=== PATIENT | male | born 1995 | race Caucasian/White ===

== ENCOUNTER 2025-03-29 16:28 | Outpatient (AMB) | payer OTHER, SELFPAY ==
--- NOTE | 2025-03-29 16:28 | MHC.PC.OV ---
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 Intake Note: New patient presents with graves disease Mold Stamper Required: No Accompanied by: Self / Same As Patient Allergies No Known Allergies Allergy (Verified 03/29/25 16:32) Medication List - Last Reconciled 03/29/25 by Myles Stevens MD methimazole 20 mg PO DAILY metoprolol succinate ER 50 mg PO DAILY Tobacco use date assessed: 03/29/25 Dental Screening Dental Screen Date: 03/29/25 Did you have a dental visit in the last 12 months?: Yes Did you have a dental problem in the last 6 months where you did not have access to dental care?: No Was dental information given to patient?: Patient has dentist HPI HPI Comments History of Present Illness Details History of Present Illness The patient is a 30 year old male presenting to [facility] primary care for management of Graves' disease and for medication refills. Graves' disease: The patient was diagnosed with Graves' disease last year and was previously managed in [place]. Recently, due to a lapse in care after moving, he tried stretching his medication dose, then went without medication for a week and a half, leading to complications. He experienced obvious weight loss and developed poorly healing skin infections from cuts sustained at work, which prompted an urgent care visit about a month ago, and he was subsequently sent to the emergency room. The ER performed blood work and prescribed his medications. His medications include methimazole, which was previously 10 mg daily and was increased to 20 mg daily after his ER visit, and metoprolol 50 mg extended release. He also reports experiencing recurrent yeast infections, including a severe one, which he associates with his hyperthyroid state. He has no history of a thyroid ultrasound. Surgical History: - Right arm surgery in 2013 for a football injury. Medications: - Methimazole 20 mg once daily for Graves' disease. - Metoprolol extended release 50 mg once daily for Graves' disease. Social History: - Occupation: [employer]. - Substance Use: Denies smoking and illicit drug use. - Alcohol Use: Drinks occasionally. - Marital Status: . - Sexual History: Sexually active with his . Past Medical History - Graves' disease, diagnosed in the last year. - Emergency room visit a few weeks ago for complications of uncontrolled Graves' disease. - Recurrent yeast infections. Health Maintenance - Establishing care with a new primary care physician. - Comprehensive blood work was ordered, including CBC, CMP, A1c, lipid panel, vitamin D, B12, folate, T4, urinalysis, hepatitis B, hepatitis C, and HIV. - A thyroid ultrasound was ordered for further evaluation. - Discussed long-term management options for Graves' disease, including thyroidectomy versus continued medical management. [facility] Medical History (Updated 03/29/25 @ 16:55 by Myles Stevens MD) Graves disease Hyperthyroidism Surgical History (Updated 03/29/25 @ 16:35 by Jus Arreaga CMA) History of surgery on arm Family History (Updated 03/29/25 @ 16:36 by Jus Arreaga CMA) Father Substance abuse Family/Other Substance abuse Social History (Updated 03/29/25 @ 16:37 by Jus Arreaga CMA) Housing: House Alcohol intake: current Comment: ocaisonally Patient Tobacco Use Status: Never used Tobacco e-Cigarette/Vaping Use: Never Used Second Hand Smoke Exposure: No Substance Use Type: Marijuana service: No Current occupational status: unemployed Cognitive needs: No Hearing needs: No Vision needs: No Questionnaire PHQ-9 Over the last 2 weeks, how often have you been bothered by any of the following problems? 1. Little interest or pleasure in doing things: not at all 2. Feeling down, depressed, or hopeless: not at all 3. Trouble falling or staying asleep, or sleeping too much: not at all 4. Feeling tired or having little energy: not at all 5. Poor appetite or overeating: several days 6. Feeling bad about yourself - or that you are a failure or have let yourself or your family down: not at all 7. Trouble concentrating on things, such as reading the newspaper or watching television: not at all 8. Moving or speaking so slowly that other people could have noticed. Or the opposite - being so fidgety or restless that you have been moving around a lot more than usual: not at all 9. Thoughts that you would be better off or of hurting yourself in some way: not at all Total score: 1 Depression Screening Interpretation: Negative Depression Screening Done: Yes 53952 - PHQ-9 Billing: Yes Source: Developed by Drs. Lexa Fang, Adrienne Luna, Paco Stover and colleagues, with an educational malik from [employer]. Thrive Questionnaire Date Thrive assessed: 03/29/25 I am a: Patient What is your living situation today?: I have a steady place to live Within the past 12 months, did the food you bought not last and you didn't have the money to get more?: Never true Within the past 12 months, did you worry whether your food would run out before you got money to buy more?: Never true Do you have trouble paying for medicines?: No Do you have trouble getting transportation to medical appointments?: No Do you have trouble paying your heating and electricity bill?: No Do you have trouble taking care of your child, family member or friend?: No Do you have trouble with day-to-day activities such as bathing, preparing meals, shopping, managing finances, etc.?: No Are you currently unemployed and looking for a job?: No Are you interested in more education?: Yes Please select the resources that you would like help with: None Currently or been in a relationship where the following occur: No concerns reported THRIVE Score: 0 AUDIT C Alcohol Use Questionnaire (AUDIT-C) 1. How often do you have a drink containing alcohol?: 2-4 times a month 2. How many drinks containing alcohol do you have on a typical day when you are drinking?: 3 or 4 3. How often do you have six or more drinks on one occasion?: Less than monthly Total Score: 4 GLADYS-7 AMB Questionnaire GLADYS-7 Date GLADYS - 7 assessed: 03/29/25 Feeling nervous, anxious, or on edge: 1 = Several days Not being able to stop or control worryin = Not at all Worrying too much about different things: 0 = Not at all Trouble relaxin = Several days Being so restless that it is hard to sit still: 0 = Not at all Becoming easily annoyed or irritable: 0 = Not at all Feeling afraid as if something awful might happen: 0 = Not at all Total GLADYS-7 score (0-4 normal; 5-9 mild; 10-14 moderate; 15-21 severe): 2 Source: Developed by Drs. Lexa Fang, Adrienne Luna, Paco Stover and colleagues, with an educational malik from [employer]. GLADYS-7 Assessment Billing GLADYS-7 Assessment Tool: GLAYDS-7 Assessment 84853 Review of Systems Narrative Review of Systems - Constitutional: Reports weight loss when medications were stopped and weight gain while on medication. - Integumentary: Reports poorly healing skin infections and cuts when hyperthyroidism is uncontrolled. - Genitourinary: Reports recurrent yeast infections, one of which was severe. - GI/: Reports normal urination and bowel movements. - Neurologic/Psychiatric: Reports sleeping well. 10-point ROS reviewed and negative except as noted in HPI Physical exam (Primary Care) Vital Signs: Last Vital Signs Temp 97.5 F 03/29/25 16:37 Pulse 67 03/29/25 16:37 Resp 18 03/29/25 16:37 BP 137/63 03/29/25 16:37 Pulse Ox 98 03/29/25 16:37 Oxygen Delivery Method Room Air 03/29/25 16:37 BMI result Body Mass Index 29.3 Tobacco/Smoking Status: Tobacco use Status Tobacco use date assessed 03/29/25 03/29/25 16:35 Patient Tobacco Use Status Never used Tobacco 03/29/25 16:37 e-Cigarette/Vaping Use Never Used 03/29/25 16:37 PHQ-9: PHQ-9 Score PHQ-9: Total score 1 03/29/25 16:41 Depression Screening Interpretation: Negative Thrive Assessment: Date of Thrive Assessment Date Thrive assessed 03/29/25 03/29/25 16:35 Currently or been in a relationship where the following occur: No concerns reported Narrative Physical Exam General: Well-appearing, in no acute distress. Vital signs: Within normal limits. HEENT: Normocephalic, atraumatic. PERRLA, EOMI. Conjunctiva clear, sclera anicteric. Oropharynx clear, mucous membranes moist. TMs intact bilaterally. Neck: Supple, no lymphadenopathy, no thyromegaly, no JVD or carotid bruits. Cardiovascular: RRR, normal S1/S2, no murmurs, rubs, or gallops. Peripheral pulses 2+ and symmetric. No edema. Respiratory: Lungs clear to auscultation bilaterally, no wheezes, rales, or rhonchi. Normal effort. Abdomen: Soft, non-tender, non-distended. Normoactive bowel sounds. No hepatosplenomegaly, no masses. MSK: Full range of motion, no joint swelling or deformity. Normal gait. Skin: Warm, dry, intact. No rashes, lesions, or pallor. Neuro: Alert and oriented x3. Cranial nerves II-XII intact. Strength 5/5 throughout. Sensation intact. Reflexes 2+ symmetric. Normal coordination and gait. Psych: Appropriate mood and affect. Normal judgment and insight. Coding Level of Care Code New Pt Level 4 (63943) Diagnoses Hyperthyroidism E05.90 Additional Codes GLADYS-7 Assessment Billing - GLADYS-7 Assessment Tool: GLADYS-7 Assessment 89604 ([id number]) PHQ-9 - 77072 - PHQ-9 Billing: Yes ([id number]) Assessment & Plan Assessment & Plan (1) Hyperthyroidism: Code(s): E05.90 - Thyrotoxicosis, unspecified without thyrotoxic crisis or storm Category: Medical Plan Consent The patient was given the option to take a paper copy of the thyroid ultrasound order to a walk-in imaging center or wait for the referral center to call and schedule an appointment. The patient agreed to a plan where he would receive the paper copy and the referral would also be sent to the facility. Verbal consent was obtained for this plan. Patient was informed and verbally consented to the use of an ambient scribe for clinic note documentation during this visit. Plan 1. Graves' Disease - Refill methimazole 20 mg once daily with a 1-month supply. - Refill metoprolol extended release 50 mg once daily with a 3-month supply. - Order comprehensive labs including CBC, CMP, HbA1c, lipid panel, vitamin D, vitamin B12, folate, T4, urinalysis, hepatitis B, hepatitis C, and HIV. - Order a thyroid ultrasound, as one has not been performed previously. - Discussed long-term management options including medical therapy versus thyroidectomy, noting that both pathways would require lifelong medication. - Will manage the patient's condition as a family medicine provider and will consider an endocrinology referral if needed after reviewing diagnostic results. - Patient to follow up in 2 weeks to discuss results and adjust the treatment plan. Discussion Notes I informed the patient that I am capable of managing his Graves' disease and that an endocrinology referral may not be immediately necessary. I have refilled his current medications, methimazole 20 mg and metoprolol 50 mg ER, to ensure continuity of care. I ordered a comprehensive panel of labs and a thyroid ultrasound, as one has not been done before. I provided him with a paper script for the ultrasound for his convenience and will also have our referral center contact him. We discussed long-term management strategies, comparing medical management with thyroidectomy, and I explained that surgery would lead to hypothyroidism requiring lifelong hormone replacement. I advised him to complete his labs before his follow-up appointment in two weeks, at which time we will review all results and adjust the plan accordingly. Patient Instructions - Your prescriptions for methimazole 20 mg (1-month supply) and metoprolol 50 mg ER (3-month supply) have been sent to your pharmacy. - Please have your blood drawn at a lab before your next appointment. - I have ordered a thyroid ultrasound. - You have been given a paper order for the ultrasound which you can take to an imaging center, or you can wait for our referral center to call you to schedule it. - Please schedule a follow-up appointment in two weeks to review your test results. Medical Decision Making The patient is a 30-year-old male with a history of Graves' disease, diagnosed within the last year, presenting to [facility] care after relocating. He has recently experienced a flare of his condition due to a lapse in medication, resulting in an ER visit for complications including weight loss and poor wound healing. The primary goal is to stabilize his thyroid function and establish a long-term management plan. My plan is to resume his medical therapy with methimazole 20 mg and metoprolol 50 mg ER immediately. To obtain a comprehensive baseline, I have ordered extensive labs, including a thyroid panel (T4), CBC to monitor for methimazole side effects, a CMP, and general health screens like an A1c and lipid panel. A thyroid ultrasound is warranted as he has never had one, which is essential for a complete evaluation of Graves' disease and to rule out nodules. I will manage his care initially and will refer to endocrinology only if the case proves to be complex after the initial workup. A follow-up in two weeks will allow for timely review of results and medication adjustments. Total Time Statement 30 min Total time spent caring for the patient today includes pre-visit chart review, documentation, review of laboratory and diagnostic imaging results, medication reconciliation, medically necessary evaluation, counseling on diagnoses, care coordination, ordering appropriate tests and medications, review of tests performed by other providers, reporting test results to the patient, and communication with other healthcare providers. Orders: Orders Complete Blood Count Auto Diff 03/29/25 Z13.9 - Encounter for screening, unspecified Hepatitis B Surface Antigen 03/29/25 Z13.9 - Encounter for screening, unspecified Syphilis Screen 03/29/25 Z13.9 - Encounter for screening, unspecified Hepatitis C Antibody 03/29/25 Z13.9 - Encounter for screening, unspecified TSH reflex Free T4 03/29/25 Z13.9 - Encounter for screening, unspecified Hemoglobin A1c 03/29/25 Z13.9 - Encounter for screening, unspecified Magnesium 03/29/25 Z13.9 - Encounter for screening, unspecified Comprehensive Met. Panel 03/29/25 Z13.9 - Encounter for screening, unspecified HIV Ab/Ag 03/29/25 Z13.9 - Encounter for screening, unspecified UA CC w/rflx Micro + Cult 03/29/25 Z13.9 - Encounter for screening, unspecified Lipid Panel 03/29/25 Z13.9 - Encounter for screening, unspecified Vitamin B12 and Folate 03/29/25 Z13.9 - Encounter for screening, unspecified Vitamin D 1,25 dihydroxy 03/29/25 Z13.9 - Encounter for screening, unspecified Hepatitis B Surface Antibody 03/29/25 Z13.9 - Encounter for screening, unspecified US thyroid 03/29/25 E05.90 - Thyrotoxicosis, unspecified without thyrotoxic crisis or storm Medications: New metoprolol succinate ER 50 mg PO DAILY 90 tabs 0RF methimazole 20 mg (2 x 10 mg) PO DAILY 60 tabs 0RF
[2025-03-29 16:37] VITALS: BP 137/63; PULSE 67; RESP 18; TEMP 36.4; O2SAT 98; BMI 29.3
--- OUTSIDE RECORDS SUMMARY | 2025-03-29 22:11 | XMS_ITS ---
Author Name [facility] Organization Unknown Results Test Name/Text Value Interpretation Date Range Source Mucous Threads UrnS Ql Micro Trace 03/03/2025 - [facility] RBC #/area UrnS HPF 4.0 /HPF Above high normal 03/03/2025 0 - 3 [facility] WBC #/area UrnS HPF 2.0 /HPF 03/03/2025 0 - 5 [facility] Prot Ur Strip-mCnc Negative 03/03/2025 - [facility] Nitrite Ur Ql Negative 03/03/2025 - [facility] Hgb Ur Ql Negative 03/03/2025 - [facility] Sp Gr Ur 1.02 03/03/2025 1.005 - 1.03 [facility] Glucose Ur Ql Negative 03/03/2025 - [facility] pH Ur 6.5 pH 03/03/2025 5 - 8 [facility] Clarity Ur Clear 03/03/2025 - [facility] Color Ur Yellow 03/03/2025 - [facility] Ketones Ur-mCnc Negative 03/03/2025 - [facility] Leukocyte esterase Ur Ql Strip Small Abnormal 03/03/2025 - [facility] TSH SerPl DL<=0.005 mIU/L-aCnc <0.01 mcIU/mL Below low normal 03/03/2025 0.45 - 5.33 [facility] T4 Free SerPl-mCnc 2.48 ng/dL Above high normal 03/03/2025 0 .5 - 1.3 [facility] Lipase SerPl-cCnc 11.0 unit/L 03/03/2025 11 - 82 [facility] CO2 SerPl-sCnc 28.0 mmol/L 03/03/2025 24 - 32 [facility] Bilirub SerPl-mCnc 0.4 mg/dL 03/03/2025 0.3 - 1 [facility] Prot SerPl-mCnc 6.7 g/dL 03/03/2025 6.4 - 8.5 [facility] Potassium SerPl-sCnc 4.2 mmol/L 03/03/2025 3.5 - 5.1 [facility] Calcium SerPl-mCnc 9.1 mg/dL 03/03/2025 8.4 - 10.2 [facility] AST SerPl-cCnc 18.0 unit/L 03/03/2025 5 - 40 [facility] BUN/Creat SerPl 30.8 Above high normal 03/03/2025 12 - 20 [facility] ALP SerPl-cCnc 119.0 unit/L Above high normal 03/03/2025 34 - 104 [facility] Albumin SerPl-mCnc 4.0 g/dL 03/03/2025 3.5 - 5 [facility] Creat SerPl-mCnc 0.65 mg/dL Below low normal 03/03/2025 0.7 - 1.3 [facility] Sodium SerPl-sCnc 136.0 mmol/L 03/03/2025 135 - 14 5 [facility] Anion Gap SerPl Calc-sCnc 6.0 03/03/2025 5 - 14 [facility] eGFRcr SerPlBld CKD-EPI 2020 129.0 mL/min/1.73m2 03/03/2025 - [facility] Chloride SerPl-sCnc 102.0 mmol/L 03/03/2025 98 - 1 07 [facility] ALT SerPl-cCnc 26.0 unit/L 03/03/2025 7 - 52 [facility] Glucose SerPl-mCnc 106.0 mg/dL 03/03/2025 70 - 199 [facility] BUN SerPl-mCnc 20.0 mg/dL 03/03/2025 9 - 20 [facility] MCHC RBC Auto-EntMCnc 33.3 g/dL 03/03/2025 32 - 36 [facility] Eosinophil NFr Bld Auto 3.7 % 03/03/2025 0 - 6 [facility] RBC # Bld Auto 4.8 M/mcL 03/03/2025 4.7 - 6 [facility] Lymphocytes NFr Bld Auto 37.6 % 03/03/2025 20 - 48 [facility] Hct VFr Bld Auto 37.8 % Below low normal 03/03/2025 40 - 54 [facility] Basophils NFr Bld Auto 0.4 % 03/03/2025 0 - 2 [facility] PMV Bld Auto 9.5 FL 03/03/2025 7.4 - 11.4 [facility] Hgb Bld-mCnc 12.6 g/dL Below low normal 03/03/2025 13.5 - 18 [facility] WBC # Bld Auto 7.1 K/mcL 03/03/2025 4 - 10.5 [facility] Monocytes NFr Bld Auto 9.7 % 03/03/2025 2 - 12 [facility] Neutrophils NFr Bld Auto 48.6 % 03/03/2025 44 - 74 [facility] MCH RBC Qn Auto 26.3 pcg 03/03/2025 25 - 33 [facility] Platelet # Bld Auto 248.0 K/mcL 03/03/2025 150 - 4 50 [facility] MCV RBC Auto 78.8 FL 03/03/2025 78 - 100 [facility] Eosinophil # Bld Auto 0.26 K/mcL 03/03/2025 0 - 0.5 [facility] Monocytes # Bld Auto 0.69 K/mcL 03/03/2025 0 - 0.8 [facility] Erythrocyte DistWidth Bld Auto 12.4 % 03/03/2025 12.1 - 17.7 [facility] Basophils # Bld Auto 0.03 K/mcL 03/03/2025 0 - 0.2 [facility] Lymphocytes # Bld Auto 2.67 K/mcL 03/03/2025 1 - 3.2 [facility] Neutrophils # Bld Auto 3.46 K/mcL 03/03/2025 1.8 - 7.8 [facility] Lactate Bld-sCnc 0.9 mmol/L 03/03/2025 - C [facility] History of Medication Use Medication Directions Dispensed Refills Start Date End Date Stat us clindamycin (CLEOCIN) 600 mg/50 mL IVPB 600 mg 600 mg, intravenous, at 100 mL/hr, Administer over 30 Minutes, Once, On Wed03/02/25 at 2137, For 1 dose, Indication: Skin/Soft Tissue 03/03/2025 03/03/2025 completed metoprolol succinate (TOPROL-XL) 50 mg 24 hr tablet Take 1 tablet (50 mg total) by mouth 1 (one) time each day. Do not crush or chew. 03/02/2025 03/02/2025 active clindamycin (CLEOCIN) 300 mg capsule Take 1 capsule (300 mg total) by mouth 3 (three) times a day for 10 days. 03/02/2025 active fluconazole (DIFLUCAN) 150 mg tablet Take 1 tablet (150 mg total) by mouth 1 (one) time per week for 2 doses. 03/02/2025 active methIMAzole (TAPAZOLE) 10 mg tablet Take 2 tablets (20 mg total) by mouth 1 (one) time each day. 03/02/2025 active methIMAzole (TAPAZOLE) 5 mg tablet Take 2 tablets (10 mg total) by mouth 1 (one) time each day. 03/02/2025 aborted Problems Problem Status Onset Date Problem Type Date of Resoluti on Source Phimosis active EncounterDiagnosisAct [facility] Acute cellulitis active EncounterDiagnosisAct [facility] Hyperthyroidism active EncounterDiagnosisAct [facility] Encounters Encounter Type Encounter Reason Primary Diagnosis Location Date Emergency cellulitis Cellulitis, unspecified [facility] 03/02/2025 Care Team Organization Name Specialty Phone Email Start Date End Da te [facility] 03/03/2025 [facility] NO PHYSICIAN Primary Care 03/03/2025 [facility] 03/03/2025
--- OUTSIDE RECORDS SUMMARY | 2025-03-29 22:11 | XMS_ITS | Clinical Summary ---
Author Organization [facility] Address [address] [place] [address] Phone Care Team Providers Care Job Spotter Name Role Phone Physician, No Pcp Primary Care Provider Unavaila ble Allergies No known active allergies Medications methIMAzole (TAPAZOLE) 10 mg tablet Take 2 tablets (20 mg total) by mouth 1 (one) time each day. 60 each 5 04/01/20 25 Active metoprolol succinate (TOPROL-XL) 50 mg 24 hr tablet Take 1 tablet (50 mg total) by mouth 1 (one) time each day. Do not crush or chew. 30 each 5 04/01/20 25 Active metoprolol succinate (TOPROL-XL) 50 mg 24 hr tablet Take 1 tablet (50 mg total) by mouth 1 (one) time each day. Do not crush or chew. 03/02/20 25 Discontinue d(Alternate therapy) methIMAzole (TAPAZOLE) 5 mg tabletIndicatio ns:hyperthyroid ism Take 2 tablets (10 mg total) by mouth 1 (one) time each day. 03/02/20 25 Discontinue d(Alternate therapy) clindamycin (CLEOCIN) 300 mg capsule Take 1 capsule (300 mg total) by mouth 3 (three) times a day for 10 days. 30 each 5 03/12/20 25 fluconazole (DIFLUCAN) 150 mg tablet Take 1 tablet (150 mg total) by mouth 1 (one) time per week for 2 doses. 2 each 5 03/10/20 25 Encounters Date Type Department Care Team Description 03/02/2025 8:38 PM EST - 03/02/2025 11:19 PM EST Emergency [facility] Emergency [address] [place] [address] Marguerite Adams MD Acute cellulitis (Primary Dx); Phimosis; Hyperthyroidism Discharge Disposition: Home or Self Care from Last 3 Months Surgical History Surgery Date Site/Laterality Comments FRACTURE SURGERY Right Right arm Medical History Medical History Date Comments Graves disease Social History Tobacco Use Types Packs/Day Years Used Date Smoking Tobacco: Never Passive Smoke Exposure: Never Smokeless Tobacco: Never Tobacco Cessation:Counseling Given: Not Answered Alcohol Use Standard Drinks/Week Comments Yes 0 (1 standard drink = 0.6 oz pur e alcohol) Sex and Gender Information Value Date Recorded Sex Assigned at Not on file Legal Sex Male 8:17 PM EST Gender Identity Not on file Sexual Orientation Not on file Obstetrics History Last Filed Vital Signs Vital Sign Reading Time Taken Comments Blood Pressure 138/66 03/02/2025 11:17 PM EST Pulse 71 03/02/2025 11:17 PM EST Temperature 37 C (98.6 F) 03/02/2025 8:29 PM EST Respiratory Rate 18 03/02/2025 11:17 PM EST Oxygen Saturation 97% 03/02/2025 11:17 PM EST Inhaled Oxygen Concentration - - Weight 97.5 kg (215 lb) 03/02/2025 8:29 PM EST Height 190.5 cm (6' 3 ) 03/02/2025 8:29 PM EST Body Mass Index 26.87 03/02/2025 8:29 PM EST Plan of Treatment Health Maintenance Due Date Last Done Comments DTaP,Tdap,and Td Vaccines (1 - Tdap) 2012 Hepatitis B Vaccines (1 of 3 - 19+ 3-dose series) 2012 HPV Vaccines (1 - 3-dose SCD M series) 2020 Depression Screening 04/26/2024 COVID-19 Vaccine ( - 2024-2 6 season) 2024 Influenza Vaccine (#1) 2024 HIV Screening 03/02/2025 Hepatitis C Screening 03/02/2025 Social Influencers of Health Screening 03/02/2025 RSV Immunization Adult Patie nts (1 - 1-dose 75+ series) 2068 HIB Vaccines Aged Out No longer eligi ble based on patient's age to complete this topic Hepatitis A Vaccines Aged Out No long er eligible based on patient's age to complete this topic IPV Vaccines Aged Out No longer eligi ble based on patient's age to complete this topic MMR Vaccines Aged Out No longer eligi ble based on patient's age to complete this topic Meningococcal ACWY Vaccine Aged Out N o longer eligible based on patient's age to complete this topic Meningococcal B Vaccine Aged Out No l onger eligible based on patient's age to complete this topic Pneumococcal Vaccine: Pediat rics (0 to 5 Years) and At-Risk Patients (6 to 49 Years) Aged Out No longer eligible b ased on patient's age to complete this topic RSV Immunization Patients Un lisa 20 months Aged Out No longer eligible b ased on patient's age to complete this topic Varicella Vaccines Aged Out No longer eligible based on patient's age to complete this topic Procedures Procedure Name Priority Date/Time Associated Diagnosis Comments CULTURE BLOOD STAT 03/02/2025 9:44 PM EST CULTURE BLOOD STAT 03/02/2025 9:37 PM EST ..URINALYSIS MICROSCOPIC REFLEX URINE CULTURE STAT 03/02/2025 9:03 PM EST URINALYSIS WITH REFLEX MICROSCOPIC AND CULTURE STAT 03/02/2025 9:03 PM EST URINALYSIS WITH REFLEX MICROSCOPIC AND CULTURE STAT 03/02/2025 9:03 PM EST CULTURE URINE STAT 03/02/2025 9:03 PM EST THYROXINE FREE STAT Add-on 03/02/2025 8:58 PM EST CBC WITH AUTO DIFFERENTIAL STAT 03/02/2025 8:58 PM EST LACTATE, WITH REFLEX STAT 03/02/2025 8:58 PM EST THYROID STIMULATING HORMONE STAT 03/02/2025 8:58 PM EST LIPASE STAT 03/02/2025 8:58 PM EST COMPREHENSIVE METABOLIC PANEL STAT 03/02/2025 8:58 PM EST CBC AND DIFFERENTIAL STAT 03/02/2025 8:58 PM EST from Last 3 Months Results * Blood Culture, Peripheral #1 (03/02/2025 9:44 PM EST) Only the most recent of2 resultswithin the time period is included. Pathologist [facility] Culture, Blood No growth at 5 days 03/08/2025 2:01 PM EST [facility] Blood Venous blood specimen / Unknown Venipuncture / Unknown 03/02/2025 9:44 PM EST 03/02/2025 9:59 PM EST Marguerite Adams MD LAB MICROBIOLOGY - GENERAL O RDERABLES Final Result [facility] [address] [place] [address], [place] [phone] * (ABNORMAL) Urinalysis with reflex microscopic and culture (03/02/2025 9:03 PM EST) [facility] Color, Urine Yellow Colorless, Yellow LAB URINALYSIS - AUTOMATED METHOD 03/02/2025 9:09 PM [facility] Clarity, Urine Clear Clear LAB URINALYSIS - AUTOMATED METHOD 03/02/2025 9:09 PM [facility] Specific Stephan Urine 1.020 1.005 - 1.030 LAB URINALYSIS - AUTOMATED METHOD 03/02/2025 9:09 PM [facility] pH, Urine 6.5 5.0 - 8.0 pH LAB URINALYSIS - AUTOMATED METHOD 03/02/2025 9:09 PM [facility] Leukocytes, Urine Small(A) Negative WBCs/mcL LAB URINALYSIS - AUTOMATED METHOD 03/02/2025 9:09 PM [facility] Nitrite, Urine Negative Negative LAB URINALYSIS - AUTOMATED METHOD 03/02/2025 9:09 PM [facility] Protein, Urine Negative Negative mg/dL LAB URINALYSIS - AUTOMATED METHOD 03/02/2025 9:09 PM [facility] Glucose, Urine Negative Negative mg/dL LAB URINALYSIS - AUTOMATED METHOD 03/02/2025 9:09 PM [facility] Ketones, Urine Negative Negative mg/dL LAB URINALYSIS - AUTOMATED METHOD 03/02/2025 9:09 PM [facility] Blood, Urine Negative Negative mg/dL LAB URINALYSIS - AUTOMATED METHOD 03/02/2025 9:09 PM [facility] Urine Urine specimen obtained by clean catch procedure / Unknown Non-blood Collection / Unknown 03/02/2025 9:03 PM EST 03/02/2025 9:06 PM EST us Marguerite Adams MD LAB URINE ORDERABLES Final R esult [facility] [place] Reg. #:[id number] [address] [place] [address], * (ABNORMAL) Urinalysis microscopic reflex urine culture (03/02/2025 9:03 PM EST) RBC, Urine 4(H) 0 - 3 /HPF 03/02/2025 9:11 PM [facility] WBC, Urine 2 0 - 5 /HPF 03/02/2025 9:11 PM [facility] Mucus, UA Trace None /LPF 03/02/2025 9:11 PM [facility] Urine Urine specimen obtained by clean catch procedure / Unknown Non-blood Collection / Unknown 03/02/2025 9:03 PM EST 03/02/2025 9:06 PM EST Marguerite Adams MD LAB URINE ORDERABLES Final R esult Performing Organization Address City/[facility]/ZIP Co de Phone Number [facility] [place] Reg. #:[id number] [address] [place] [address], [place] [phone] * Culture urine (03/02/2025 9:03 PM EST) Culture, Urine No growth 03/04/2025 11:56 AM EST [facility] Urine Urine specimen obtained by clean catch procedure / Unknown Non-blood Collection / Unknown 03/02/2025 9:03 PM EST 03/02/2025 9:09 PM EST Marguerite Adams MD LAB MICROBIOLOGY - GENERAL O RDERABLES Final Result Performing Organization Address City/[facility] Co de Phone Number [facility] [address] [place] [address], [place] [phone] * Lactate, with reflex (03/02/2025 8:58 PM EST) LACTIC ACID 0.9 <=2.0 mmol/L LAB BLOOD GAS METHOD 03/02/2025 9:04 PM EST [facility] Blood Venous blood specimen / Unknown Venipuncture / Unknown 03/02/2025 8:58 PM EST 03/02/2025 9:02 PM EST Marguerite Adams MD LAB BLOOD ORDERABLES Final R esult Performing Organization Address City/[facility]/ZIP Co de Phone Number [facility] [place] Reg. #:[id number] [address] [place] [address], * (ABNORMAL) CBC auto differential (03/02/2025 8:58 PM EST) [facility] WBC 7.1 4.0 - 10.5 K/mcL LAB HEMETOLOGY METHOD 03/02/2025 9:04 PM [facility] RBC 4.80 4.70 - 6.00 M/mcL LAB HEMETOLOGY METHOD 03/02/2025 9:04 PM [facility] Hemoglobin 12.6(L) 13.5 - 18.0 g/dL LAB HEMETOLOGY METHOD 03/02/2025 9:04 PM [facility] Hematocrit 37.8(L) 40.0 - 54.0 % LAB HEMETOLOGY METHOD 03/02/2025 9:04 PM [facility] MCV 78.8 78.0 - 100.0 FL LAB HEMETOLOGY METHOD 03/02/2025 9:04 PM [facility] MCH 26.3 25.0 - 33.0 pcg LAB HEMETOLOGY METHOD 03/02/2025 9:04 PM [facility] MCHC 33.3 32.0 - 36.0 g/dL LAB HEMETOLOGY METHOD 03/02/2025 9:04 PM [facility] RDW 12.4 12.1 - 17.7 % LAB HEMETOLOGY METHOD 03/02/2025 9:04 PM [facility] Platelets 248 150 - 450 K/mcL LAB HEMETOLOGY METHOD 03/02/2025 9:04 PM [facility] MPV 9.5 7.4 - 11.4 FL LAB HEMETOLOGY METHOD 03/02/2025 9:04 PM [facility] Neutrophils Relative 48.6 44.0 - 74.0 % LAB HEMETOLOGY METHOD 03/02/2025 9:04 PM [facility] Lymphocytes Relative 37.6 20.0 - 48.0 % LAB HEMETOLOGY METHOD 03/02/2025 9:04 PM [facility] Monocytes Relative 9.7 2.0 - 12.0 % LAB HEMETOLOGY METHOD 03/02/2025 9:04 PM [facility] Eosinophils Relative 3.7 0.0 - 6.0 % LAB HEMETOLOGY METHOD 03/02/2025 9:04 PM [facility] Basophils Relative 0.4 0.0 - 2.0 % LAB HEMETOLOGY METHOD 03/02/2025 9:04 PM [facility] Neutrophils Absolute 3.46 1.80 - 7.80 K/mcL LAB HEMETOLOGY METHOD 03/02/2025 9:04 PM [facility] Lymphocytes Absolute 2.67 1.00 - 3.20 K/mcL LAB HEMETOLOGY METHOD 03/02/2025 9:04 PM [facility] Monocytes Absolute 0.69 0.00 - 0.80 K/mcL LAB HEMETOLOGY METHOD 03/02/2025 9:04 PM [facility] Eosinophils Absolute 0.26 0.00 - 0.50 K/mcL LAB HEMETOLOGY METHOD 03/02/2025 9:04 PM [facility] Basophils Absolute 0.03 0.00 - 0.20 K/mcL LAB HEMETOLOGY METHOD 03/02/2025 9:04 PM [facility] Blood Venous blood specimen / Unknown Venipuncture / Unknown 03/02/2025 8:58 PM EST 03/02/2025 9:02 PM EST us Marguerite Adams MD LAB BLOOD ORDERABLES Final R esult [facility] Reg. #:[id number] [address] [place] [address], * (ABNORMAL) Thyroid stimulating hormone (TSH) (03/02/2025 8:58 PM EST) Pathologist [facility] TSH <0.01(L) 0.45 - 5.33 mcIU/mL LAB CHEMISTRY METHOD 03/02/2025 10:09 PM EST [facility] Blood Venous blood specimen / Unknown Venipuncture / Unknown 03/02/2025 8:58 PM EST 03/02/2025 9:02 PM EST Marguerite Adams MD LAB BLOOD ORDERABLES Final R esult [facility] Reg. #:[id number] [address] [place] [address], [place] [phone] * (ABNORMAL) T4, free (03/02/2025 8:58 PM EST) [facility] Free T4 2.48(H) 0.50 - 1.30 ng/dL LAB CHEMISTRY METHOD 03/02/2025 10:07 PM EST [facility] Blood Venous blood specimen / Unknown Venipuncture / Unknown 03/02/2025 8:58 PM EST 03/02/2025 9:02 PM EST Marguerite Adams MD LAB BLOOD ORDERABLES Final R esult [facility] Reg. #:[id number] [address] [place] [address], [place] [phone] * Lipase (03/02/2025 8:58 PM EST) Lipase 11 11 - 82 unit/L LAB CHEMISTRY METHOD 03/02/2025 9:21 PM [facility] Blood Venous blood specimen / Unknown Venipuncture / Unknown 03/02/2025 8:58 PM EST 03/02/2025 9:02 PM EST Marguerite Adams MD LAB BLOOD ORDERABLES Final R esult [facility] [place] Reg. #:[id number] [address] [place] [address], * (ABNORMAL) Comprehensive metabolic panel (03/02/2025 8:58 PM EST) [facility] Sodium 136 135 - 145 mmol/L LAB CHEMISTRY METHOD 03/02/2025 9:21 PM [facility] Potassium 4.2 3.5 - 5.1 mmol/L LAB CHEMISTRY METHOD 03/02/2025 9:21 PM [facility] Chloride 102 98 - 107 mmol/L LAB CHEMISTRY METHOD 03/02/2025 9:21 PM [facility] CO2 28 24 - 32 mmol/L LAB CHEMISTRY METHOD 03/02/2025 9:21 PM [facility] Anion Gap 6 5 - 14 LAB CHEMISTRY METHOD 03/02/2025 9:21 PM [facility] Glucose 106 70 - 199 mg/dL LAB CHEMISTRY METHOD 03/02/2025 9:21 PM [facility] BUN 20 9 - 20 mg/dL LAB CHEMISTRY METHOD 03/02/2025 9:21 PM [facility] Creatinine 0.65(L) 0.70 - 1.30 mg/dL LAB CHEMISTRY METHOD 03/02/2025 9:21 PM [facility] eGFR 129 >=60 mL/min/1. 73m2 LAB CHEMISTRY METHOD 03/02/2025 9:21 PM [facility] Comment:Calculation based on the Chronic Kidney Disease Epidemiology Collaboration (CKD-EPI) equation refit without adjustment for race. BUN/Creatinine Ratio 30.8(H) 12.0 - 20.0 LAB CHEMISTRY METHOD 03/02/2025 9:21 PM [facility] Calcium 9.1 8.4 - 10.2 mg/dL LAB CHEMISTRY METHOD 03/02/2025 9:21 PM [facility] AST (SGOT) 18 5 - 40 unit/L LAB CHEMISTRY METHOD 03/02/2025 9:21 PM [facility] ALT (SGPT) 26 7 - 52 unit/L LAB CHEMISTRY METHOD 03/02/2025 9:21 PM [facility] Alkaline Phosphatase 119(H) 34 - 104 unit/L LAB CHEMISTRY METHOD 03/02/2025 9:21 PM [facility] Total Protein 6.7 6.4 - 8.5 g/dL LAB CHEMISTRY METHOD 03/02/2025 9:21 PM [facility] Albumin 4.0 3.5 - 5.0 g/dL LAB CHEMISTRY METHOD 03/02/2025 9:21 PM [facility] Total Bilirubin 0.4 0.3 - 1.0 mg/dL LAB CHEMISTRY METHOD 03/02/2025 9:21 PM [facility] Blood Venous blood specimen / Unknown Venipuncture / Unknown 03/02/2025 8:58 PM EST 03/02/2025 9:02 PM EST us Lis Marisela Adams MD LAB BLOOD ORDERABLES Final R esult [facility] [place] Reg. #:[id number] [address] [facility] [place] [address], [place] [phone] from Last 3 Months Insurance [employer] Care Teams Job Spotter Relationship Specialty Start Date End Date Physician, No Pcp PCP - General 03/02/25
== END 2025-03-29 17:00 | disposition home or self-care (01) ==
LOC: HO.HMCFMS 16:28
PROVIDERS: Visit Provider Student in an Organized Health Care Education/Training Program
DX: E05.90 Thyrotoxicosis, unspecified without thyrotoxic crisis or storm (principal)

== ENCOUNTER → 2025-03-29 16:28 | Outpatient (BNVA) | payer OTHER, SELFPAY | PROVIDERS: Visit Provider Student in an Organized Health Care Education/Training Program | DX: E05.90 Thyrotoxicosis, unspecified without thyrotoxic crisis or storm (principal) | CPT/HCPCS: 96127 ==

== ENCOUNTER 2025-04-12 15:21 | Outpatient (REF) | payer OTHER, SELFPAY ==
[2025-04-12 18:01] LABS: MANUAL DIFF FLAG NO
[2025-04-12 18:06] LABS: Hematocrit 43.1 % (42.0-52.0); Hemoglobin 14.0 g/dl (14.0-18.0); Imm Gran Abs Auto 0.01 X10*3/uL (0.00-0.03); Imm Gran Pct Auto 0.2 % (0.0-0.4); Lymphocytes Absolute Auto 1.8 X10*3/uL (1.2-4.9); Mean Corpuscular HGB Conc 32.5 g/dl (31.0-36.0); Mean Corpuscular Hemoglobin 26.1 pg (27.0-33.0); Mean Corpuscular Volume 80.3 fL (80.0-98.0); NRBC Abs Auto 0.000 X10*3/uL (0.0-0.012); NRBC Pct Auto 0.0 /100WBC (0.0-0.2); Platelet Count 210 X10*3/uL (160-400); Red Blood Count 5.37 X10*6/uL (4.60-5.80); White Blood Count 6.3 X10*3/uL (4.8-10.8)
[2025-04-12 18:30] LABS: Alanine Aminotransferase 34 U/L (0-40); Albumin Level 4.5 g/dL (3.5-5.0); Alkaline Phosphatase 146 U/L (39-117); Anion Gap 11 (12-20); Aspartate Amino Transferase 33 U/L (5-37); Blood Urea Nitrogen 13 mg/dL (9-16); Calcium 9.1 mg/dL (8.4-10.2); Carbon Dioxide 27 mmol/L (22-29); Chloride 104 mmol/L (96-108); Cholesterol 146 mg/dL (<200); Estimated Glomerular Filt Rate > 60; HDL Cholesterol 51 mg/dL (>40); Magnesium 2.1 mg/dL (1.6-2.6); Potassium 3.8 mmol/L (3.3-5.1); Sodium 138 mmol/L (135-145); Total Protein 7.1 g/dL (6.5-8.0); Triglycerides 38 mg/dL (<150)
[2025-04-12 18:48] LABS: Folate 11.9 ng/mL (> or = 4.0); Vitamin B12 530 pg/mL (200-900)
--- OUTSIDE RECORDS SUMMARY | 2025-04-12 19:22 | XMS_ITS | Clinical Summary ---
Author Organization [facility] Address [address] [place] [address] Phone Care Team Providers Care Chief Radiology Name Role Phone Physician, No Pcp Primary Care Provider Unavaila ble Allergies No known active allergies Medications methIMAzole (TAPAZOLE) 10 mg tablet Take 2 tablets (20 mg total) by mouth 1 (one) time each day. 60 each 03/02/2025 Active metoprolol succinate (TOPROL-XL) 50 mg 24 hr tablet Take 1 tablet (50 mg total) by mouth 1 (one) time each day. Do not crush or chew. 30 each 03/02/2025 Active Encounters Date Type Department Care Team Description 03/02/2025 8:38 PM EST - 03/02/2025 11:19 PM EST Emergency [facility] Emergency [address] [place] [id number] Marguerite Adams MD Acute cellulitis (Primary Dx); [...] on file Sexual Orientation Not on file Last Filed Vital Signs Vital Sign Reading [...] series) 2020 Depression Screening 04/26/2024 COVID-19 Vaccine (1 - 2024-2 6 season) 2024 Influenza Vaccine [...] of2 resultswithin the time period is included. Culture, Blood No growth at 5 days 03/08/2025 2:01 PM EST [facility] Blood Venous blood specimen / Unknown Venipuncture / Unknown 03/02/2025 9:44 PM EST 03/02/2025 9:59 PM EST us Marguerite Adams MD LAB MICROBIOLOGY - GENERAL O RDERABLES Final Result [facility] [address] [place] [address], [place] [phone] * (ABNORMAL) Urinalysis with reflex microscopic and culture (03/02/2025 9:03 PM EST) Color, Urine Yellow Colorless, Yellow LAB URINALYSIS - AUTOMATED METHOD 03/02/2025 9:09 PM [facility] Clarity, Urine Clear Clear LAB URINALYSIS - AUTOMATED METHOD 03/02/2025 9:09 PM [facility] Specific [place] Urine 1.020 1.005 - 1.030 LAB URINALYSIS - AUTOMATED METHOD 03/02/2025 9:09 PM [facility] pH, Urine 6.5 5.0 - 8.0 pH LAB URINALYSIS - AUTOMATED METHOD 03/02/2025 9:09 PM [facility] Leukocytes, Urine Small(A) Negative WBCs/mcL LAB URINALYSIS - AUTOMATED METHOD 03/02/2025 9:09 PM [facility] Nitrite, Urine Negative Negative LAB URINALYSIS - AUTOMATED METHOD 03/02/2025 9:09 PM [facility] Protein, Urine Negative Negative mg/dL LAB URINALYSIS - AUTOMATED METHOD 03/02/2025 9:09 PM [facility] Glucose, Urine Negative Negative mg/dL LAB URINALYSIS - AUTOMATED METHOD 03/02/2025 9:09 PM [facility] Ketones, Urine Negative Negative mg/dL LAB URINALYSIS - AUTOMATED METHOD 03/02/2025 9:09 PM [facility] Blood, Urine Negative Negative mg/dL LAB URINALYSIS - AUTOMATED METHOD 03/02/2025 9:09 PM [facility] Urine Urine specimen obtained by clean catch procedure / Unknown Non-blood Collection / Unknown 03/02/2025 9:03 PM EST 03/02/2025 9:06 PM EST Marguerite Adams MD LAB URINE ORDERABLES Final R esult [facility] [place] Reg. #:[id number] [address] [place] [address], [place] [phone] * (ABNORMAL) Urinalysis microscopic reflex urine culture (03/02/2025 9:03 PM EST) RBC, Urine 4(H) 0 - 3 /HPF 03/02/2025 9:11 PM EST [facility] WBC, Urine 2 0 - 5 /HPF 03/02/2025 9:11 PM EST [facility] Mucus, UA Trace None /LPF 03/02/2025 9:11 PM EST [facility] Urine Urine specimen obtained by clean catch procedure / Unknown Non-blood Collection / Unknown 03/02/2025 9:03 PM EST 03/02/2025 9:06 PM EST us Marguerite Adams MD LAB URINE ORDERABLES Final R esult [facility] [place] Reg. #:[id number] [address] [place] [address], [place] [phone] * Culture urine (03/02/2025 9:03 PM EST) Culture, Urine No growth 03/04/2025 11:56 AM EST [facility] Urine Urine specimen obtained by clean catch procedure / Unknown Non-blood Collection / Unknown 03/02/2025 9:03 PM EST 03/02/2025 9:09 PM EST Marguerite Adams MD LAB MICROBIOLOGY - GENERAL O RDERABLES Final Result [facility] [address] [place] [address], [place] [phone] * Lactate, with reflex (03/02/2025 8:58 PM EST) Pathologist [facility] LACTIC ACID 0.9 <=2.0 mmol/L LAB BLOOD GAS METHOD 03/02/2025 9:04 PM EST [facility] Blood Venous blood specimen / Unknown Venipuncture / Unknown 03/02/2025 8:58 PM EST 03/02/2025 9:02 PM EST Marguerite Adams MD LAB BLOOD ORDERABLES Final R esult [facility] [place] Reg. #:[id number] [address] [place] [address], [place] [phone] * (ABNORMAL) CBC auto differential (03/02/2025 8:58 PM EST) Pathologist [facility] WBC 7.1 4.0 - 10.5 K/mcL LAB HEMETOLOGY METHOD 03/02/2025 9:04 PM EST [facility] RBC 4.80 4.70 - 6.00 M/mcL LAB HEMETOLOGY METHOD 03/02/2025 9:04 PM EST [facility] Hemoglobin 12.6(L) 13.5 - 18.0 g/dL LAB HEMETOLOGY METHOD 03/02/2025 9:04 PM [facility] Hematocrit 37.8(L) 40.0 - 54.0 % LAB HEMETOLOGY METHOD 03/02/2025 9:04 PM [facility] MCV 78.8 78.0 - 100.0 FL LAB HEMETOLOGY METHOD 03/02/2025 9:04 PM [facility] MCH 26.3 25.0 - 33.0 pcg LAB HEMETOLOGY METHOD 03/02/2025 9:04 PM [facility] MCHC 33.3 32.0 - 36.0 g/dL LAB HEMETOLOGY METHOD 03/02/2025 9:04 PM [facility] RDW 12.4 12.1 - 17.7 % LAB HEMETOLOGY METHOD 03/02/2025 9:04 PM [facility] Platelets 248 150 - 450 K/mcL LAB HEMETOLOGY METHOD 03/02/2025 9:04 PM [facility] MPV 9.5 7.4 - 11.4 FL LAB HEMETOLOGY METHOD 03/02/2025 9:04 PM [facility] Neutrophils Relative 48.6 44.0 - 74.0 % LAB HEMETOLOGY METHOD 03/02/2025 9:04 PM [facility] Lymphocytes Relative 37.6 20.0 - 48.0 % LAB HEMETOLOGY METHOD 03/02/2025 9:04 PM [facility] Monocytes Relative 9.7 2.0 - 12.0 % LAB HEMETOLOGY METHOD 03/02/2025 9:04 PM [facility] Eosinophils Relative 3.7 0.0 - 6.0 % LAB HEMETOLOGY METHOD 03/02/2025 9:04 PM [facility] Basophils Relative 0.4 0.0 - 2.0 % LAB HEMETOLOGY METHOD 03/02/2025 9:04 PM [facility] Neutrophils Absolute 3.46 1.80 - 7.80 K/mcL LAB HEMETOLOGY METHOD 03/02/2025 9:04 PM EST [facility] Lymphocytes Absolute 2.67 1.00 - 3.20 K/[facility] LAB HEMETOLOGY METHOD 03/02/2025 9:04 PM EST [facility] Monocytes Absolute 0.69 0.00 - 0.80 K/[facility] HEMETOLOGY METHOD 03/02/2025 9:04 PM EST [facility] Eosinophils Absolute 0.26 0.00 - 0.50 K/[facility] HEMETOLOGY METHOD 03/02/2025 9:04 PM EST [facility] Basophils Absolute 0.03 0.00 - 0.20 K/[facility] HEMETOLOGY METHOD 03/02/2025 9:04 PM EST [facility] Blood Venous blood specimen / Unknown Venipuncture / Unknown 03/02/2025 8:58 PM EST 03/02/2025 9:02 PM EST us Marguerite Adams MD LAB BLOOD ORDERABLES Final R esult [facility] [place] Reg. #:[id number] [address] [place] [address], * (ABNORMAL) Thyroid stimulating hormone (TSH) (03/02/2025 8:58 PM EST) TSH <0.01(L) 0.45 - 5.33 mcIU/mL LAB CHEMISTRY METHOD 03/02/2025 10:09 PM EST [facility] Blood Venous blood specimen / Unknown Venipuncture / Unknown 03/02/2025 8:58 PM EST 03/02/2025 9:02 PM EST Marguerite Adams MD LAB BLOOD ORDERABLES Final R esult [facility] Reg. #:[id number] [address] [place] [address], [place] [phone] * (ABNORMAL) T4, free (03/02/2025 8:58 PM EST) Free T4 2.48(H) 0.50 - 1.30 ng/dL LAB CHEMISTRY METHOD 03/02/2025 10:07 PM EST [facility] Blood Venous blood specimen / Unknown Venipuncture / Unknown 03/02/2025 8:58 PM EST 03/02/2025 9:02 PM EST Marguerite Adams MD LAB BLOOD ORDERABLES Final R esult Performing Organization Address [facility] Co de Phone Number [facility] Reg. #:[id number] [place] [address], [place] [phone] * Lipase (03/02/2025 8:58 PM EST) [facility] Lipase 11 11 - 82 unit/L LAB CHEMISTRY METHOD 03/02/2025 9:21 PM EST [facility] Blood Venous blood specimen / Unknown Venipuncture / Unknown 03/02/2025 8:58 PM EST 03/02/2025 9:02 PM EST us Marguerite Adams MD LAB BLOOD ORDERABLES Final R esult Performing Organization Address City/[facility]/ZIP Co de Phone Number [facility] Reg. #:[id number] [address] [place] [address], [place] [phone] * (ABNORMAL) Comprehensive metabolic panel (03/02/2025 8:58 PM EST) [facility] Sodium 136 135 - 145 mmol/L LAB CHEMISTRY METHOD 03/02/2025 9:21 PM [facility] Potassium 4.2 3.5 - 5.1 mmol/L LAB CHEMISTRY METHOD 03/02/2025 9:21 PM [facility] Chloride 102 98 - 107 mmol/L LAB CHEMISTRY METHOD 03/02/2025 9:21 PM [facility] CO2 28 24 - 32 mmol/L LAB CHEMISTRY METHOD 03/02/2025 9:21 PM [facility] Anion Gap 6 5 - 14 LAB CHEMISTRY METHOD 03/02/2025 9:21 PM [facility] Glucose 106 70 - 199 mg/dL LAB CHEMISTRY METHOD 03/02/2025 9:21 PM [facility] BUN 20 9 - 20 mg/dL LAB CHEMISTRY METHOD 03/02/2025 9:21 PM [facility] Creatinine 0.65(L) 0.70 - 1.30 mg/dL LAB CHEMISTRY METHOD 03/02/2025 9:21 PM [facility] eGFR 129 >=60 mL/min/1. 73m2 LAB CHEMISTRY METHOD 03/02/2025 9:21 PM [facility] Comment:Calculation based on the Chronic Kidney Disease Epidemiology Collaboration (CKD-EPI) equation refit without adjustment for race. BUN/Creatinine Ratio 30.8(H) 12.0 - 20.0 LAB CHEMISTRY METHOD 03/02/2025 9:21 PM [facility] Calcium 9.1 8.4 - 10.2 mg/dL LAB CHEMISTRY METHOD 03/02/2025 9:21 PM [facility] AST (SGOT) 18 5 - 40 unit/L LAB CHEMISTRY METHOD 03/02/2025 9:21 PM [facility] ALT (SGPT) 26 7 - 52 unit/L LAB CHEMISTRY METHOD 03/02/2025 9:21 PM EST [facility] Alkaline Phosphatase 119(H) 34 - 104 unit/L LAB CHEMISTRY METHOD 03/02/2025 9:21 PM EST [facility] Total Protein 6.7 6.4 - 8.5 g/dL LAB CHEMISTRY METHOD 03/02/2025 9:21 PM EST [facility] Albumin 4.0 3.5 - 5.0 g/dL LAB CHEMISTRY METHOD 03/02/2025 9:21 PM EST [facility] Total Bilirubin 0.4 0.3 - 1.0 mg/dL LAB CHEMISTRY METHOD 03/02/2025 9:21 PM EST [facility] Blood Venous blood specimen / Unknown Venipuncture / Unknown 03/02/2025 8:58 PM EST 03/02/2025 9:[address] [facility] Marisela Adams MD LAB BLOOD ORDERABLES Final R esult [facility] [place] Reg. #:[id number] [address] [place] [address], [place] [phone] from Last [address] [place] [address] [employer] Care Teams Chief Radiology Relationship Specialty Start Date End Date Physician, No Pcp PCP - General 03/02/25
[2025-04-12 19:29] LABS: Free T4 (Free Thyroxine) 1.53 ng/dL (0.71-1.85)
[2025-04-13 08:34] LABS: HBS Num1 27.11 mIU/mL (0-7.99)
[2025-04-13 08:35] LABS: HBsAGNum1 0.30 S/CO (0.00-0.99); HIV Num 1 0.12 S/CO (0.00-0.99); Hepatitis B Surface Antigen Negative (Negative); ~HepC Num1 0.21 S/CO (0.00-0.79); ~Hepatitis B Surface Antibody REACTIVE (Nonreactive); ~Hepatitis C Antibody Nonreactive (Nonreactive)
[2025-04-13 09:33] LABS: Syphilis Screen Nonreactive (Nonreactive)
== END 2025-04-12 15:22 | disposition home or self-care (01) ==
LOC: HO.HKASLDS 15:21
PROVIDERS: PCP Student in an Organized Health Care Education/Training Program; Visit Provider Student in an Organized Health Care Education/Training Program
DX: Z13.89 Encounter for screening for other disorder (principal); Z11.4 Encounter for screening for human immunodeficiency virus [HIV]; Z11.59 Encounter for screening for other viral diseases; Z01.84 Encounter for antibody response examination; Z13.29 Encounter for screening for other suspected endocrine disorder; Z13.6 Encounter for screening for cardiovascular disorders; Z13.1 Encounter for screening for diabetes mellitus
CPT/HCPCS: 36415; 80053; 80061; 82607; 82652; 82746; 83036; 83735; 84439; 84443; 85025; 86706; 86780; 86803; 87340; 87389

== ENCOUNTER 2025-04-18 09:18 | Outpatient (AMB) | payer OTHER, SELFPAY ==
[2025-04-18 09:20] VITALS: BP 134/65; PULSE 67; RESP 16; TEMP 36.5; O2SAT 98; BMI 29.7
--- NOTE | 2025-04-18 09:20 | A.OFFPC_ITS ---
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 Required: No Accompanied by: Self / Same As Patient Allergies No Known Allergies Allergy (Verified 04/18/25 09:22) Medication List - Last Reconciled 04/18/25 by Myles Stevens MD methimazole 20 mg (2 x 10 mg) PO DAILY metoprolol succinate ER 50 mg PO DAILY Tobacco use date assessed: 04/18/25 Dental Screening Dental Screen Date: 04/18/25 Did you have a dental visit in the last 12 months?: Yes Did you have a dental problem in the last 6 months where you did not have access to dental care?: No Was dental information given to patient?: Patient has dentist HPI HPI Comments History of Present Illness Details History of Present Illness The patient is a 30 year old male presenting for follow-up of hyperthyroidism and a new complaint of nasal obstruction. Subclinical Hyperthyroidism: The patient reports feeling significantly better since starting treatment for hyperthyroidism and denies current hyperthyroid symptoms. He is taking methimazole and metoprolol, which he finds to be effective. Recent lab results indicated a normal free T4 level but a suppressed TSH, consistent with subclinical hyperthyroidism. Nasal Obstruction: The patient reports a long-standing history of a deviated septum for at least 15 years, which he attributes to wrestling injuries. He states he can only breathe out of one nostril, and the obstruction worsens significantly with exertion or nasal congestion, leading to mouth breathing. This can cause him to wake his at night. 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 - Family Status: He is and has a [id number]-plv son. - Housing: He recently sold a house in [facility] and is in the process of closing on a new house. - Substance Use: No use of tobacco, alco hol, or illicit drugs was discussed. Diagnostic Results: - Complete blood count: White blood cell s, red blood cells, hemoglobin, and hematocrit are normal. - Comprehensive metabolic panel: Sodium, potassium, and kidney function are normal. - Glucose/A1c: Normal; patient is not pr ediabetic. - Other electrolytes: Calcium and magnes ium are normal. - Liver function tests: Alkaline phospha tase is slightly elevated. - Lipid panel: Triglycerides, total chol esterol, LDL, and HDL are all normal. - Vitamins: Vitamin B12 and Vitamin D ar e normal. - Thyroid function tests: Free T4 is nor mal, TSH is suppressed. - Infectious disease screen: Negative fo r syphilis, hepatitis B, hepatitis C, and HIV. Past Medical History - Hyperthyroidism, currently classified as subclinical - Deviated nasal septum for at least 15 years, secondary to past trauma from [employer] Maintenance - Recent screening labs for syphilis, he patitis B, hepatitis C, and HIV were all negative. - Diabetes screening with glucose and he moglobin A1c was normal. [facility] Medical History (Updated 04/18/25 @ 13:20 by Myles Stevens MD) Graves disease Hyperthyroidism Surgical History History of surgery on arm Family History Father Substance abuse Family/Other Substance abuse Social History Housing: House Alcohol intake: current Comment: ocaisonally Patient Tobacco Use Status: Never used Tobacco e-Cigarette/Vaping Use: Never Used Second Hand Smoke Exposure: No Substance Use Type: Marijuana service: No Current occupational status: unemployed Cognitive needs: No Hearing needs: No Vision needs: No Questionnaire PHQ-9 Over the last 2 weeks, how often have you been bothered by any of the following problems? 1. Little interest or pleasure in doing things: not at all 2. Feeling down, depressed, or hopeless: not at all 3. Trouble falling or staying asleep, or sleeping too much: not at all 4. Feeling tired or having little energy: not at all 5. Poor appetite or overeating: several days 6. Feeling bad about yourself - or that you are a failure or have let yourself or your family down: not at all 7. Trouble concentrating on things, such as reading the newspaper or watching television: not at all 8. Moving or speaking so slowly that other people could have noticed. Or the opposite - being so fidgety or restless that you have been moving around a lot more than usual: not at all 9. Thoughts that you would be better off or of hurting yourself in some way: not at all Total score: 1 Depression Screening Interpretation: Negative Depression Screening Done: Yes 97198 - PHQ-9 Billing: Yes Source: Developed by Drs. Lexa Fang, Adrienne Luna, Paco Stover and colleagues, with an educational malik from [employer]. Thrive Questionnaire Date Thrive assessed: 04/18/25 I am a: Patient What is your living situation today?: I have a steady place to live Within the past 12 months, did the food you bought not last and you didn't have the money to get more?: Never true Within the past 12 months, did you worry whether your food would run out before you got money to buy more?: Never true Do you have trouble paying for medicines?: No Do you have trouble getting transportation to medical appointments?: No Do you have trouble paying your heating and electricity bill?: No Do you have trouble taking care of your child, family member or friend?: No Do you have trouble with day-to-day activities such as bathing, preparing meals, shopping, managing finances, etc.?: No Are you currently unemployed and looking for a job?: No Are you interested in more education?: Yes Currently or been in a relationship where the following occur: No concerns reported THRIVE Score: 0 AUDIT C Alcohol Use Questionnaire (AUDIT-C) 1. How often do you have a drink containing alcohol?: 2-4 times a month 2. How many drinks containing alcohol do you have on a typical day when you are drinking?: 3 or 4 3. How often do you have six or more drinks on one occasion?: Less than monthly Total Score: 4 GLADYS-7 AMB Questionnaire GLADYS-7 Date GLADYS - 7 assessed: 04/18/25 Feeling nervous, anxious, or on edge: 1 = Several days Not being able to stop or control worryin = Not at all Worrying too much about different things: 0 = Not at all Trouble relaxin = Several days Being so restless that it is hard to sit still: 0 = Not at all Becoming easily annoyed or irritable: 0 = Not at all Feeling afraid as if something awful might happen: 0 = Not at all Total GLADYS-7 score (0-4 normal; 5-9 mild; 10-14 moderate; 15-21 severe): 2 Source: Developed by Drs. Lexa Fang, Adrienne Luna, Paco Stover and colleagues, with an educational malik from [employer]. GLADYS-7 Assessment Billing GLADYS-7 Assessment Tool: GLADYS-7 Assessment 88733 Review of Systems Narrative Review of Systems - Constitutional: Reports feeling 'a lot better.' - Endocrine: Denies symptoms of hyperthyroidism. - Respiratory: Reports chronic nasal obstruction and difficulty breathing through the nose, especially with exertion or congestion, requiring mouth breathing. - All other systems reviewed and are negative. 10-point ROS reviewed and negative except as noted in HPI Physical exam (Primary Care) Vital Signs: Last Vital Signs Temp 97.7 F 04/18/25 09:20 Pulse 67 04/18/25 09:20 Resp 16 04/18/25 09:20 BP 134/65 04/18/25 09:20 Pulse Ox 98 04/18/25 09:20 Oxygen Delivery Method Room Air 04/18/25 09:20 BMI result Body Mass Index 29.7 Tobacco/Smoking Status: Tobacco use Status Tobacco use date assessed 04/18/25 04/18/25 09:23 Patient Tobacco Use Status Never used Tobacco 04/18/25 09:21 e-Cigarette/Vaping Use Never Used 04/18/25 09:21 PHQ-9: PHQ-9 Score PHQ-9: Total score 1 04/18/25 09:23 Depression Screening Interpretation: Negative Thrive Assessment: Date of Thrive Assessment Date Thrive assessed 04/18/25 04/18/25 09:23 Currently or been in a relationship where the following occur: No concerns reported Narrative Physical Exam General: Well-appearing, in no acute distress. Vital signs: Within normal limits. HEENT: Normocephalic, atraumatic. PERRLA, EOMI. Conjunctiva clear, sclera anic teric. Oropharynx clear, mucous membranes moist. TMs intact bilaterally. Noted deviated septum to the left. Neck: Supple, no lymphadenopathy, no thyromegaly, no JVD or carotid bruits. Cardiovascular: RRR, normal S1/S2, no murmurs, rubs, or gallops. Peripheral pulses 2+ and symmetric. No edema. Respiratory: Lungs clear to auscultation bilaterally, no wheezes, rales, or rhonchi. Normal effort. Abdomen: Soft, non-tender, non-distended. Normoactive bowel sounds. No hepatosplenomegaly, no masses. MSK: Full range of motion, no joint swelling or deformity. Normal gait. Skin: Warm, dry, intact. No rashes, lesions, or pallor. Neuro: Alert and oriented x3. Cranial nerves II-XII intact. Strength 5/5 throughout. Sensation intact. Reflexes 2+ symmetric. Normal coordination and gait. Psych: Appropriate mood and affect. Normal judgment and insight. Coding Level of Care Code Est Pt Level 3 (64145) Add On Problem Visit Only Diagnoses Graves disease E05.00 Deviated septum J34.2 Elevated alkaline phosphatase level R74.8 Additional Codes GLADYS-7 Assessment Billing - GLADYS-7 Assessment Tool: GLADYS-7 Assessment 40410 ([id number]) PHQ-9 - 62990 - PHQ-9 Billing: Yes ([id number]) Assessment & Plan Assessment & Plan (1) Graves disease: Code(s): E05.00 - Thyrotoxicosis with diffuse goiter without thyrotoxic crisis or storm Category: Medical (2) Deviated septum: Code(s): J34.2 - Deviated nasal septum Category: Medical (3) Elevated alkaline phosphatase level: Code(s): R74.8 - Abnormal levels of other serum enzymes Category: Medical Plan Consent Patient was informed and verbally consented to the use of an ambient scribe for clinic note documentation during this visit. Plan 1. Subclinical Hyperthyroidism - The patient is responding well to treatment and feels much better. - Continue methimazole and metoprolol at current dosages. - Repeat labs in 4-6 weeks to reassess thyroid function and monitor alkaline phosphatase. - Proceed with scheduled thyroid ultrasound. - Place referral to endocrinology for consultation. - Follow up in the office in 4-6 weeks to review results. 2. Deviated Nasal Septum - The patient has a long-standing history of nasal obstruction confirmed by physical exam. - Place referral to ENT for further evaluation and management. Discussion Notes I reviewed the patient's lab results with him, explaining that his thyroid function is improving with a normal free T4, though the TSH remains suppressed, indicating a subclinical hyperthyroidism. I noted that his CBC, metabolic panel, and lipids were normal, with the exception of a slightly elevated alkaline phosphatase, which is not concerning now but will be rechecked. Given that he is feeling much better, I advised him to continue his methimazole and metoprolol. We discussed the plan for repeat labs in 4-6 weeks, a referral to endocrinology, and proceeding with his scheduled thyroid ultrasound. The patient also brought up a chronic issue with a deviated septum. I confirmed the deviation on exam and placed a referral to ENT for evaluation. The patient agreed with the plan and was instructed to follow up in 4-6 weeks or sooner if any new concerns arise. Patient Instructions - Continue taking your methimazole and metoprolol as prescribed because they are working well. - Get your lab work done again in 4 to 6 weeks, which is when you should also schedule a follow-up visit with me. - A referral has been sent for you to see an tool machine setup operator (a thyroid specialist). - Make sure to go to your scheduled thyroid ultrasound in May. - A referral has been sent for you to see an ENT (ear, nose, and throat) specialist for your breathing difficulties. - If you feel any different or have any new concerns before your next appointment, please come back to be seen. Medical Decision Making The patient is a 30-year-old male with hyperthyroidism who presents for a follow-up visit. He reports significant symptomatic improvement on methimazole and metoprolol. His lab work is reassuring, with a normal free T4; however, his TSH remains suppressed, which is consistent with subclinical hyperthyroidism. The decision is to continue the current medication regimen as it is clinically effective and well-tolerated. Repeat labs in 4-6 weeks are necessary to monitor his thyroid function and avoid iatrogenic hypothyroidism. A referral to endocrinology is appropriate for specialized co-management. The patient also introduced a new complaint of chronic nasal obstruction due to a deviated septum, with a history for over 15 years and related to prior trauma. The obstructive symptoms are bothersome, particularly with exertion. A physical exam confirmed the deviation, and a referral to ENT is the correct course for surgical evaluation. Total Time Statement 20 min Total time spent caring for the patient today includes pre-visit chart review, documentation, review of laboratory and diagnostic imaging results, medication reconciliation, medically necessary evaluation, counseling on diagnoses, care coordination, ordering appropriate tests and medications, review of tests performed by other providers, reporting test results to the patient, and communication with other healthcare providers. Orders: Referrals Ear/Nose/Throat Referral J34.2 - Deviated nasal septum Endocrinology Referral E05.00 - Thyrotoxicosis with diffuse goiter without thyrotoxic crisis or storm
--- OUTSIDE RECORDS SUMMARY | 2025-04-18 09:22 | XMS_ITS | Clinical Summary ---
Author Organization [facility] Address [address] [place] [address] Phone Care Team Providers Care Construction Project Administrator Name Role Phone Physician, No Pcp Primary [...] EST - 03/02/2025 11:19 PM EST Emergency [facility] Emergency [address] [place] [phone] Marguerite Adams MD Acute cellulitis (Primary Dx); [...] at 5 days 03/08/2025 2:01 PM EST [facility] Blood Venous blood specimen / Unknown Venipuncture / Unknown 03/02/2025 9:44 PM EST 03/02/2025 9:59 PM EST us Marguerite Adams MD LAB MICROBIOLOGY - GENERAL O RDERABLES Final Result [facility] [address] [place] [address], [place] [phone] * (ABNORMAL) Urinalysis with reflex microscopic and culture (03/02/2025 9:03 PM EST) Color, Urine Yellow Colorless, Yellow LAB URINALYSIS - AUTOMATED METHOD 03/02/2025 9:09 PM [facility] Clarity, Urine Clear Clear LAB URINALYSIS - AUTOMATED METHOD 03/02/2025 9:09 PM [facility] Specific [place] Urine 1.020 1.005 - 1.030 LAB URINALYSIS - AUTOMATED METHOD 03/02/2025 9:09 PM [facility] pH, Urine 6.5 5.0 - 8.0 pH LAB URINALYSIS - AUTOMATED METHOD 03/02/2025 9:09 PM [facility] Leukocytes, Urine Small(A) Negative WBCs/mcL LAB URINALYSIS - AUTOMATED METHOD 03/02/2025 9:09 PM [facility] Nitrite, Urine Negative Negative LAB URINALYSIS - AUTOMATED METHOD 03/02/2025 9:09 PM [facility] Protein, Urine Negative Negative mg/dL LAB URINALYSIS - AUTOMATED METHOD 03/02/2025 9:09 PM [facility] Glucose, Urine Negative Negative mg/dL LAB URINALYSIS - AUTOMATED METHOD 03/02/2025 9:09 PM [facility] Ketones, Urine Negative Negative mg/dL LAB URINALYSIS - AUTOMATED METHOD 03/02/2025 9:09 PM [facility] Blood, Urine Negative Negative mg/dL LAB URINALYSIS - AUTOMATED METHOD 03/02/2025 9:09 PM [facility] Urine Urine specimen obtained by clean catch procedure / Unknown Non-blood Collection / Unknown 03/02/2025 9:03 PM EST 03/02/2025 9:06 PM EST Marguerite Adams MD LAB URINE ORDERABLES Final R esult [facility] [place] Reg. #:[id number] [address] [place] [address], [place] [phone] * (ABNORMAL) Urinalysis microscopic reflex urine culture (03/02/2025 9:03 PM EST) RBC, Urine 4(H) 0 - 3 /HPF 03/02/2025 9:11 PM EST [facility] WBC, Urine 2 0 - 5 /HPF 03/02/2025 9:11 PM EST [facility] Mucus, UA Trace None /LPF 03/02/2025 9:11 PM EST [facility] Urine Urine specimen obtained by clean catch procedure / Unknown Non-blood Collection / Unknown 03/02/2025 9:03 PM EST 03/02/2025 9:06 PM EST us Marguerite Adams MD LAB URINE ORDERABLES Final R esult [facility] [place] Reg. #:[id number] [address] [place] [address], [place] [phone] * Culture urine (03/02/2025 9:03 PM EST) Culture, Urine No growth 03/04/2025 11:56 AM EST [facility] Urine Urine specimen obtained by clean catch procedure / Unknown Non-blood Collection / Unknown 03/02/2025 9:03 PM EST 03/02/2025 9:09 PM EST Marguerite Adams MD LAB MICROBIOLOGY - GENERAL O RDERABLES Final Result [facility] ([facility] [address] [place] [address], [place] [phone] * Lactate, with reflex (03/02/2025 8:58 PM EST) Pathologist [facility] LACTIC ACID 0.9 <=2.0 mmol/L LAB BLOOD GAS METHOD 03/02/2025 9:04 PM EST [facility] Blood Venous blood specimen / Unknown Venipuncture / Unknown 03/02/2025 8:58 PM EST 03/02/2025 9:02 PM EST Marguerite Adams MD LAB BLOOD ORDERABLES Final R esult [facility] [place] Reg. #:[id number] [address] [place] [address], [place] [phone] * (ABNORMAL) CBC auto differential (03/02/2025 8:58 PM EST) Pathologist [facility] WBC 7.1 4.0 - 10.5 K/mcL LAB HEMETOLOGY METHOD 03/02/2025 9:04 PM EST [facility] RBC 4.80 4.70 - 6.00 M/mcL LAB HEMETOLOGY METHOD 03/02/2025 9:04 PM EST [facility] Hemoglobin 12.6(L) 13.5 - 18.0 g/dL LAB HEMETOLOGY METHOD 03/02/2025 9:04 PM [facility] Hematocrit 37.8(L) 40.0 - 54.0 % LAB HEMETOLOGY METHOD 03/02/2025 9:04 PM [facility] MCV 78.8 78.0 - 100.0 FL LAB HEMETOLOGY METHOD 03/02/2025 9:04 PM [facility] MCH 26.3 25.0 - 33.0 pcg LAB HEMETOLOGY METHOD 03/02/2025 9:04 PM [facility] MCHC 33.3 32.0 - 36.0 g/dL LAB HEMETOLOGY METHOD 03/02/2025 9:04 PM [facility] RDW 12.4 12.1 - 17.7 % LAB HEMETOLOGY METHOD 03/02/2025 9:04 PM [facility] Platelets 248 150 - 450 K/mcL LAB HEMETOLOGY METHOD 03/02/2025 9:04 PM [facility] MPV 9.5 7.4 - 11.4 FL LAB HEMETOLOGY METHOD 03/02/2025 9:04 PM [facility] Neutrophils Relative 48.6 44.0 - 74.0 % LAB HEMETOLOGY METHOD 03/02/2025 9:04 PM [facility] Lymphocytes Relative 37.6 20.0 - 48.0 % LAB HEMETOLOGY METHOD 03/02/2025 9:04 PM [facility] Monocytes Relative 9.7 2.0 - 12.0 % LAB HEMETOLOGY METHOD 03/02/2025 9:04 PM [facility] Eosinophils Relative 3.7 0.0 - 6.0 % LAB HEMETOLOGY METHOD 03/02/2025 9:04 PM [facility] Basophils Relative 0.4 0.0 - 2.0 % LAB HEMETOLOGY METHOD 03/02/2025 9:04 PM [facility] Neutrophils Absolute 3.46 1.80 - 7.80 K/mcL LAB HEMETOLOGY METHOD 03/02/2025 9:04 PM EST [facility] Lymphocytes Absolute 2.67 1.00 - 3.20 K/[facility] LAB HEMETOLOGY METHOD 03/02/2025 9:04 PM EST [facility] Monocytes Absolute 0.69 0.00 - 0.80 K/[facility] LAB HEMETOLOGY METHOD 03/02/2025 9:04 PM EST [facility] Eosinophils Absolute 0.26 0.00 - 0.50 K/[facility] LAB HEMETOLOGY METHOD 03/02/2025 9:04 PM EST [facility] Basophils Absolute 0.03 0.00 - 0.20 K/[facility] LAB HEMETOLOGY METHOD 03/02/2025 9:04 PM EST [facility] Blood Venous blood specimen / Unknown Venipuncture / Unknown 03/02/2025 8:58 PM EST 03/02/2025 9:02 PM EST us Marguerite Adams MD LAB BLOOD ORDERABLES Final R esult [facility] [place] Reg. #:[id number] [address] [place] [address], * (ABNORMAL) Thyroid stimulating hormone (TSH) (03/02/2025 8:58 PM EST) TSH <0.01(L) 0.45 - 5.33 mcIU/mL LAB CHEMISTRY METHOD 03/02/2025 10:09 PM EST [facility] Blood Venous blood specimen / Unknown Venipuncture / Unknown 03/02/2025 8:58 PM EST 03/02/2025 9:02 PM EST Marguerite Adams MD LAB BLOOD ORDERABLES Final R esult [facility] Reg. #:[id number] [address] [place] [address], [place] [phone] * (ABNORMAL) T4, free (03/02/2025 8:58 PM EST) Free T4 2.48(H) 0.50 - 1.30 ng/dL LAB CHEMISTRY METHOD 03/02/2025 10:07 PM EST [facility] Blood Venous blood specimen / Unknown Venipuncture / Unknown 03/02/2025 8:58 PM EST 03/02/2025 9:02 PM EST Marguerite Adams MD LAB BLOOD ORDERABLES Final R esult Performing Organization Address [facility] Co de Phone Number [facility] Reg. #:[id number] [place] [address], [place] [phone] * Lipase (03/02/2025 8:58 PM EST) [facility] Lipase 11 11 - 82 unit/L LAB CHEMISTRY METHOD 03/02/2025 9:21 PM EST [facility] Blood Venous blood specimen / Unknown Venipuncture / Unknown 03/02/2025 8:58 PM EST 03/02/2025 9:02 PM EST us Marguerite Adams MD LAB BLOOD ORDERABLES Final R esult Performing Organization Address City/[facility]/ZIP Co de Phone Number [facility] Reg. #:[id number] [address] [place] [address], [place] [phone] * (ABNORMAL) Comprehensive metabolic panel (03/02/2025 8:58 PM EST) [facility] Sodium 136 135 - 145 mmol/L LAB CHEMISTRY METHOD 03/02/2025 9:21 PM [facility] Potassium 4.2 3.5 - 5.1 mmol/L LAB CHEMISTRY METHOD 03/02/2025 9:21 PM [facility] Chloride 102 98 - 107 mmol/L LAB CHEMISTRY METHOD 03/02/2025 9:21 PM [facility] CO2 28 24 - 32 mmol/L LAB CHEMISTRY METHOD 03/02/2025 9:21 PM [facility] Anion Gap 6 5 - 14 LAB CHEMISTRY METHOD 03/02/2025 9:21 PM [facility] Glucose 106 70 - 199 mg/dL LAB CHEMISTRY METHOD 03/02/2025 9:21 PM [facility] BUN 20 9 - 20 mg/dL LAB CHEMISTRY METHOD 03/02/2025 9:21 PM [facility] Creatinine 0.65(L) 0.70 - 1.30 mg/dL LAB CHEMISTRY METHOD 03/02/2025 9:21 PM [facility] eGFR 129 >=60 mL/min/1. 73m2 LAB CHEMISTRY METHOD 03/02/2025 9:21 PM [facility] Comment:Calculation based on the Chronic Kidney Disease Epidemiology Collaboration (CKD-EPI) equation refit without adjustment for race. BUN/Creatinine Ratio 30.8(H) 12.0 - 20.0 LAB CHEMISTRY METHOD 03/02/2025 9:21 PM [facility] Calcium 9.1 8.4 - 10.2 mg/dL LAB CHEMISTRY METHOD 03/02/2025 9:21 PM [facility] AST (SGOT) 18 5 - 40 unit/L LAB CHEMISTRY METHOD 03/02/2025 9:21 PM [facility] ALT (SGPT) 26 7 - 52 unit/L LAB CHEMISTRY METHOD 03/02/2025 9:21 PM EST [facility] Alkaline Phosphatase 119(H) 34 - 104 unit/L LAB CHEMISTRY METHOD 03/02/2025 9:21 PM EST [facility] Total Protein 6.7 6.4 - 8.5 g/dL LAB CHEMISTRY METHOD 03/02/2025 9:21 PM EST [facility] Albumin 4.0 3.5 - 5.0 g/dL LAB CHEMISTRY METHOD 03/02/2025 9:21 PM EST [facility] Total Bilirubin 0.4 0.3 - 1.0 mg/dL LAB CHEMISTRY METHOD 03/02/2025 9:21 PM EST [facility] Blood Venous blood specimen / Unknown Venipuncture / Unknown 03/02/2025 8:58 PM EST 03/02/2025 9:02 PM EST [facility] Marisela Adams MD LAB BLOOD ORDERABLES Final R esult [facility] [place] Reg. #:[id number] [address] [place] [address], [place] [phone] from Last 3 [place] [phone] [employer] Care Teams Construction Project Administrator Relationship Specialty Start Date End Date Physician, No Pcp PCP - General 03/02/25
== END 2025-04-18 09:54 | disposition home or self-care (01) ==
LOC: HO.HMCFMS 09:19
PROVIDERS: PCP Student in an Organized Health Care Education/Training Program; Visit Provider Student in an Organized Health Care Education/Training Program
DX: E05.00 Thyrotoxicosis with diffuse goiter without thyrotoxic crisis or storm (principal); J34.2 Deviated nasal septum; R74.8 Abnormal levels of other serum enzymes

== ENCOUNTER → 2025-04-18 09:18 | Outpatient (BNVA) | payer OTHER, SELFPAY | PROVIDERS: PCP Student in an Organized Health Care Education/Training Program; Visit Provider Student in an Organized Health Care Education/Training Program | DX: E05.00 Thyrotoxicosis with diffuse goiter without thyrotoxic crisis or storm (principal); J34.2 Deviated nasal septum; R74.8 Abnormal levels of other serum enzymes; Z79.899 Other long term (current) drug therapy; Z13.31 Encounter for screening for depression; Z13.39 Encounter for screening examination for other mental health and behavioral disorders | CPT/HCPCS: 96127 ==